=== PATIENT | male | born 1945 | race Caucasian/White ===

== ENCOUNTER → 2020-01-29 | Outpatient (CLI) | payer MEDICARE ==
[~2020-01-29] MED LIST: ALLOPURINOL 30300 M2 PO; ASPIRIN325 OR; CRESTOR5 MG PO; EFFIENT10 MG PO; LASIX 40 MG TAB40 M1 PO; LISINOPRIL10 MG PO; LOPRESSOR PO; LORTAB 7.5/5001 TA3 PO; LOVAZA1000 MG PO; MULTIVITAMINS PO; NITROSTAT0.4 MG SL; PERCOCET 5-3251 EACH PO; SENOKOT-S1 TA1 PO; TOPROL XL25 MG PO; TRILIPIX135 MG OR; VITAMIN D1000 UNI1 PO
== END ==
LOC: SJCVC 10:47
PROVIDERS: ATTEND Internal Medicine Cardiovascular Disease
DX: I44.0 Atrioventricular block, first degree (principal); I25.810 Atherosclerosis of coronary artery bypass graft(s) without angina pectoris; I10 Essential (primary) hypertension; E11.9 Type 2 diabetes mellitus without complications; E78.00 Pure hypercholesterolemia, unspecified; E78.1 Pure hyperglyceridemia; E78.5 Hyperlipidemia, unspecified; I25.2 Old myocardial infarction; Z79.899 Other long term (current) drug therapy; Z79.82 Long term (current) use of aspirin; Z82.49 Family history of ischemic heart disease and other diseases of the circulatory system; Z95.1 Presence of aortocoronary bypass graft; Z87.891 Personal history of nicotine dependence

== ENCOUNTER → 2021-03-22 | Outpatient (CLI) | payer MEDICARE | LOC: SJCVC 13:59 | PROVIDERS: ATTEND Internal Medicine Cardiovascular Disease | DX: I25.10 Atherosclerotic heart disease of native coronary artery without angina pectoris (principal); I10 Essential (primary) hypertension; E78.00 Pure hypercholesterolemia, unspecified; E78.1 Pure hyperglyceridemia; E11.9 Type 2 diabetes mellitus without complications; I25.2 Old myocardial infarction; Z95.1 Presence of aortocoronary bypass graft; Z87.891 Personal history of nicotine dependence; Z72.89 Other problems related to lifestyle; Z79.82 Long term (current) use of aspirin; Z79.899 Other long term (current) drug therapy; Z79.84 Long term (current) use of oral hypoglycemic drugs ==

== ENCOUNTER → 2021-09-22 | Outpatient (CLI) | payer MEDICARE | LOC: SJCVC 14:32 | PROVIDERS: ATTEND Internal Medicine Cardiovascular Disease | DX: I25.810 Atherosclerosis of coronary artery bypass graft(s) without angina pectoris (principal); I10 Essential (primary) hypertension; E78.00 Pure hypercholesterolemia, unspecified; E11.9 Type 2 diabetes mellitus without complications; E78.1 Pure hyperglyceridemia; R06.00 Dyspnea, unspecified; E78.5 Hyperlipidemia, unspecified; Z95.1 Presence of aortocoronary bypass graft; Z87.891 Personal history of nicotine dependence; Z72.89 Other problems related to lifestyle; Z79.82 Long term (current) use of aspirin; Z79.899 Other long term (current) drug therapy; Z79.84 Long term (current) use of oral hypoglycemic drugs; Z82.49 Family history of ischemic heart disease and other diseases of the circulatory system ==